=== PATIENT | male | born 1990 | race Caucasian/White ===

== ENCOUNTER 2018-02-04 13:17 | Emergency (ER) | payer MEDICAID ==
[~2018-02-04] VITALS: Ht 167.6 cm; Wt 80.7 kg
[2018-02-04 13:24] VITALS: BP 130/85
[2018-02-04] MEDS ORDERED: traMADol 50 MG TAB PO ONE (13:35)
--- NOTE | 2018-02-04 13:41 | NUR ---
PT TAKEN TO XRAY VIA WHEELCHAIR
--- NOTE | 2018-02-04 13:45 | NUR ---
PATIENT IS A 27 Y/O MALE WHO PRESENTS TO THE ED C/O R WRIST PAIN. PT STATES THAT HE WAS SKATEBOARDING AND FELL AND OUTSTRETCHED HIS R HAND TO CATCH FALL. PT REPORTS 6/10 ACHING R WRIST PAIN. NOTED SWELLING AND TENDERNESS. CMS INTACT, NO LOC. PT DENIES CP, SOB, N/V/D. PT AWAKE AND ALERT, RR EVEN/UNLABORED. PT REPOSITIONED FOR COMFORT, BED IN LOWEST POSITION. ER MD DR. MARTINEZ NOTIFIED. WILL CONTINUE TO MONITOR.
--- NOTE | 2018-02-04 13:46 | NUR ---
Stella sanders in ED - 02/04/18 at 1352 by [facility] RT AT BEDSIDE.
[2018-02-04 15:38] VITALS: BP 107/65
== END 2018-02-04 15:38 | disposition home or self-care (01) ==
LOC: MED 13:17
DX: M25.531 Pain in right wrist (principal); M79.89 Other specified soft tissue disorders; M79.641 Pain in right hand; Z88.6 Allergy status to analgesic agent
CPT/HCPCS: 73110; 99283

== ENCOUNTER 2022-06-03 21:00 | Emergency (ER) | payer MEDICAID ==
[~2022-06-03] VITALS: Ht 170.2 cm; Wt 77.6 kg
[2022-06-03 21:30] VITALS: BP 132/79
--- NOTE | 2022-06-03 21:30 | NUR ---
Patient taken to bed 11.
--- NOTE | 2022-06-03 23:11 | NUR ---
Patient taken to CT scan via WC.
--- NOTE | 2022-06-03 23:22 | NUR ---
Patient reported, had neck pain, 11/23. Dr. Scales notified.
[2022-06-03] MEDS ORDERED: LIDOCAINE 5% 1 EA PATCH TP STA (23:24)
[2022-06-03] MEDS ORDERED: CYCLOBENZAPRINE 10 MG TAB PO ONE (23:25)
[2022-06-03] MEDS ORDERED: HYDROcodone/APAP 5/325 MG 1 TAB TAB PO ONE (23:25)
[2022-06-04] MEDS ORDERED: ACET-9525 PO (00:13)
[2022-06-04] MEDS ORDERED: CYCL-711 PO (00:13)
[2022-06-04] MEDS ORDERED: ACET-8905 PO (00:21)
[2022-06-04 00:29] VITALS: BP 128/79
--- NOTE | 2022-06-04 00:29 | NUR ---
Patient discharged with v/s stable. Written and verbal after care instructions given and explained. Patient alert, oriented and verbalized understanding of instructions. Ambulatory with steady gait. All questions addressed prior to discharge. ID band removed. Patient advised to follow up with PMD. Rx of Flexeril and [place] given. Patient educated on indication of medication including possible reaction and side effects. Opportunity to ask questions provided and answered.
[2022-06-05] MEDS ORDERED: ACET-8905 PO (18:05)
== END 2022-06-04 00:29 | disposition home or self-care (01) ==
LOC: MED 21:00
DX: S22.030A Wedge compression fracture of third thoracic vertebra, initial encounter for closed fracture (principal); S16.1XXA Strain of muscle, fascia and tendon at neck level, initial encounter; S09.90XA Unspecified injury of head, initial encounter; V79.88XA Bus occupant (driver) (passenger) injured in other specified transport accidents, initial encounter; Y93.89 Activity, other specified; Y92.89 Other specified places as the place of occurrence of the external cause; Y99.8 Other external cause status
CPT/HCPCS: 70450; 72125; 99284